=== PATIENT | female | born 1970 | race Hispanic/Latino ===

== ENCOUNTER 2021-05-04 23:50 | Emergency (ER) | payer SELFPAY ==
[2021-05-04 23:54] VITALS: BP 95/49
[2021-05-05] MEDS ORDERED: diphenhydrAMINE 50 MG/ML VIAL IV ONE (01:07)
[2021-05-05] MEDS ORDERED: FAMOTIDINE 20 MG/2 ML INJ IV ONE (01:07)
[2021-05-05] MEDS ORDERED: METOCLOPRAMIDE 10 MG/2 ML INJ IV ONE (01:07)
[2021-05-05] MEDS ORDERED: KETOROLAC 30 MG/1 ML INJ IV ONE (01:08)
[2021-05-05] MEDS ORDERED: SODIUM CHLORIDE 0.9% 1000 ML 1,000 ML IV ONE (01:08)
[2021-05-05 01:55] LABS: Eosinophils # (Auto) 0.1 K/mm3 (0.0-0.4); Eosinophils % (Auto) 2.1 % (0.0-4.3); Hematocrit 31.9 % (30.3-42.9); Hemoglobin 10.2 gm/dl (10.1-14.3); Lymphocytes # (Auto) 1.8 K/mm3 (1.2-5.4); Lymphocytes % (Auto) 43.2 % (13.4-35.0); Mean Corpuscular HGB Conc 32 % (30-34); Mean Corpuscular Volume 78 fl (79-97); Monocytes # (Auto) 0.5 K/mm3 (0.0-0.8); Monocytes % (Auto) 11.3 % (0.0-7.3); Platelet Count 273 K/mm3 (140-440); Red Blood Count 4.11 M/mm3 (3.65-5.03); Red Cell Distribution Width 18.7 % (13.2-15.2)
[2021-05-05 02:21] LABS: Alanine Aminotransferase 14 units/L (7-56); Blood Urea Nitrogen 25 mg/dL (7-17); Calcium 8.5 mg/dL (8.4-10.2); Hemolysis Index 4
[2021-05-05 02:23] LABS: BUN/Creatinine Ratio 42
--- NOTE | 2021-05-05 03:39 | Emergency Department Report ---
ED N/V/D HPI - General Chief complaint: Headache Stated complaint: headache PUI?: No Source: family Mode of arrival: Ambulatory Limitations: No Limitations - History of Present Illness Initial comments: Patient is a 50-year-old white female with a history of anxiety and depression who presents to the ED with with complaint of acute onset persistent nausea and vomiting and headache for the last 8 hours after eating canned fish from the store. Patient states that she is unwilling to keep anything down in the last 4 hours because of persistent nausea and vomiting and headache. Patient denies fall, traumatic injury, dizziness, syncope, sore throat, chest pain or shortness of breath, abdominal pain, dysuria, urinary frequency and urgency, fever and chills or palpitations. MD complaint: nausea, vomiting, other (headache) -: Sudden, hour(s) (8) Description of Vomiting: food contents, watery, bilious Associated Abdominal Pain: No Location: diffuse Radiation: none Severity: mild Pain Scale: 2 Quality: aching, dull Consistency: intermittent Improves with: none Worsens with: vomiting Context: possible food poisoning Associated Symptoms: denies other symptoms, headaches, malaise, nausea/vomiting. denies: myalgias, chest pain, cough, diaphoresis, fever/chills, loss of appetite, rash, dysuria, shortness of breath, syncope, weakness - Related Data Previous Rx's Medication Instructions Recorded Last Taken Type Famotidine [Pepcid] 20 mg PO BID #40 tablet 05/05/21 Unknown Rx Ibuprofen [Motrin] 600 mg PO Q8H PRN #20 tablet 05/05/21 Unknown Rx Ondansetron [Zofran Odt] 4 mg PO Q8HR PRN #20 tab.rapdis 05/05/21 Unknown Rx Allergies Allergy/AdvReac Type Severity Reaction Status Date / Time No Known Allergies Allergy Verified 05/05/21 01:12 ED Review of Systems ROS: Stated complaint: headache Other details as noted in HPI Constitutional: denies: chills, fever Eyes: denies: eye pain, eye discharge, vision change ENT: denies: ear pain, throat pain Respiratory: denies: cough, shortness of breath, wheezing Cardiovascular: denies: chest pain, palpitations Endocrine: no symptoms reported Gastrointestinal: nausea, vomiting. denies: abdominal pain, diarrhea Genitourinary: denies: urgency, dysuria, discharge Musculoskeletal: denies: back pain, joint swelling, arthralgia Skin: denies: rash, lesions Neurological: headache. denies: weakness, paresthesias Psychiatric: denies: anxiety, depression Hematological/Lymphatic: denies: easy bleeding, easy bruising ED Past Medical Hx - Past Medical History Previous Medical History?: No Hx Psychiatric Treatment: Yes (Anxiety and depression) - Surgical History Past Surgical History?: No - Medications Home Medications: Home Medications Medication Instructions Recorded Confirmed Last Taken Type Famotidine [Pepcid] 20 mg PO BID #40 tablet 05/05/21 Unknown Rx Ibuprofen [Motrin] 600 mg PO Q8H PRN #20 tablet 05/05/21 Unknown Rx Ondansetron [Zofran Odt] 4 mg PO Q8HR PRN #20 tab.rapdis 05/05/21 Unknown Rx ED Physical Exam - General Limitations: No Limitations General appearance: alert, in no apparent distress - Head Head exam: Present: atraumatic, normocephalic, normal inspection - Eye Eye exam: Present: normal appearance, PERRL, EOMI Pupils: Present: normal accommodation - ENT ENT exam: Present: normal exam, normal orophraynx, mucous membranes moist, TM's normal bilaterally, normal external ear exam - Neck Neck exam: Present: normal inspection, full ROM - Respiratory Respiratory exam: Present: normal lung sounds bilaterally. Absent: respiratory distress, wheezes, rales, rhonchi, chest wall tenderness, accessory muscle use, decreased breath sounds, prolonged expiratory - Cardiovascular Cardiovascular Exam: Present: normal rhythm, tachycardia, normal heart sounds. Absent: systolic murmur, diastolic murmur, rubs, gallop - GI/Abdominal GI/Abdominal exam: Present: soft, normal bowel sounds. Absent: tenderness, guarding, rebound, hyperactive bowel sounds, hypoactive bowel sounds, mass - Extremities Exam Extremities exam: Present: normal inspection, full ROM, normal capillary refill - Back Exam Back exam: Present: normal inspection, full ROM. Absent: tenderness, CVA tenderness (R), CVA tenderness (L), muscle spasm, paraspinal tenderness, vertebral tenderness - Neurological Exam Neurological exam: Present: alert, oriented X3, CN II-XII intact, normal gait, reflexes normal - Psychiatric Psychiatric exam: Present: normal affect, normal mood - Skin Skin exam: Present: warm, dry, intact, normal color. Absent: rash ED Course Vital Signs 05/04/21 23:51 Temperature 98.4 F Pulse Rate 101 H Respiratory 17 Rate Blood Pressure 95/49 [Right] O2 Sat by Pulse 98 Oximetry ED Medical Decision Making - Lab Data Result diagrams: 05/05/21 01:16 05/05/21 01:16 - Medical Decision Making This is a 50-year-old white female with a history of anxiety and depression who presents to the ED with with complaint of acute onset persistent nausea and vomiting and headache for the last 8 hours after eating canned fish from the store. Patient states that she is unwilling to keep anything down in the last 4 hours because of persistent nausea and vomiting and headache. In the ED, patient is alert and oriented x3 and is in no distress. Patient is however anxious in triage. Lab test results were reviewed and are all nonactionable except for BUN which was slight elevated consistent with dehydration. Patient received treatment in the ED with normal saline 1 L IV bolus x1, also given antiemetics, and pain medications. On reevaluation, patient's pain and nausea and vomiting resolved. Patient passed oral fluid challenge in the ED. Patient however declined to give urinalysis and was discharged home on medications including antiemetics and antacids and pain medications. Patient was advised return to the ED immediately if symptoms get worse. Patient was otherwise advised to follow-up with her primary care physician in 3 to 5 days for reevaluation. - Differential Diagnosis Dehydration; Gastroenteritis; Tension headache; Anxiety Critical care attestation.: If time is entered above; I have spent that time in minutes in the direct care of this critically ill patient, excluding procedure time. ED Disposition Clinical Impression: Anxiety as acute reaction to exceptional stress, Nausea and vomiting in adult patient, Viral gastroenteritis, Dehydration Tension-type headache Qualifiers: Headache chronicity pattern: acute headache Intractability: not intractable Qualified Code(s): G44.209 - Tension-type headache, unspecified, not intractable Disposition: 01 HOME / SELF CARE / HOMELESS Is pt being admited?: No Does the pt Need Aspirin: No Condition: Stable Instructions: Nausea and Vomiting, Adult, [id number], Generalized Anxiety Disorder, Adult, General Headache Without Cause, [id number], Viral Gastroenteritis, Adult, [id number], Dehydration, Adult, [id number] Additional Instructions: All lab test results were reviewed and are all nonactionable except for sign of dehydration. You have been treated in the ED for nausea and vomiting and headache and also received normal saline 1 L IV bolus to mitigate on your dehydration. Therefore take medications as needed for nausea and for pain, drink plenty of fluids and follow-up with your primary care physician in 5 to 7 days for reevaluation. Return to the emergency department immediately if symptoms get worse. Prescriptions: Ibuprofen [Motrin] 600 mg PO Q8H PRN #20 tablet PRN Reason: Pain Famotidine [Pepcid] 20 mg PO BID #40 tablet Ondansetron [Zofran Odt] 4 mg PO Q8HR PRN #20 tab.rapdis PRN Reason: Nausea And Vomiting Referrals: [facility] [Provider Group] - 3-5 Days Time of Disposition: 03:39 Print Language: ISRAELI
== END 2021-05-05 04:20 | disposition home or self-care (01) ==
LOC: ED 23:50
DX: G44.209 Tension-type headache, unspecified, not intractable (principal); F41.9 Anxiety disorder, unspecified; A08.4 Viral intestinal infection, unspecified; E86.0 Dehydration; F32.9 Major depressive disorder, single episode, unspecified
CPT/HCPCS: 36415; 80053; 84703; 85025; 96374; 96375; 99283; J1200; J1885; J2765; J3490; J7030; Q0162